=== PATIENT | female | born 1980 | race Caucasian/White ===

== ENCOUNTER 2017-01-09 15:25 | Emergency (ER) | payer MEDICAID ==
[~2017-01-09] VITALS: Ht 167.6 cm; Wt 56.0 kg
[~2017-01-09 15:25] MED LIST: BACT800T5 PO; CEPH500C3 PO; HYDR-3533 PO
[2017-01-09 15:27] VITALS: BP 127/78; PULSE 84; RESP 24; TEMP 99.9; O2SAT 96
[2017-01-09] MEDS ORDERED: PENI500T PO (16:20)
[2017-01-09] MEDS ORDERED: NORC5TAB PO (16:20)
--- NOTE | 2017-01-09 16:20 | PD ---
HPI Chief Complaint: Oral / Dental Pain or Problem Time Seen by Provider: 16:17 Travel History International Travel<30 days: No Contact w/Intl Traveler<30days: No Traveled to known affect area: No History of Present Illness HPI 36-year-old female here with complaint of dental pain. Patient states that she woke up this morning with pain in her left maxillary incisor. Noted associated lip swelling. Patient's pain is moderate to severe, associated swelling. She tried Tylenol and ibuprofen without improvement of her symptoms. She does not have a local dentist. PFSH Past Medical History Cancer: No Cardiovascular Problems: No Diabetes: No Endocrine: No Genitourinary: Yes (LEFT KIDNEY ) Hepatitis: No Hiatal Hernia: No Immune Disorder: No Kidney Stones: Yes Musculoskeletal: No Neurologic: No Psychiatric: No Reproductive: No Respiratory: No Thyroid Disease: No Tetanus Vaccination: < 5 Years PNEUMOCCOCAL Vaccine (Year): 2 ?: Not LMP: 11/2016 : 1 Para: 1 Past Surgical History Abdominal Surgery: No Body Medical Devices: NONE Cardiac Surgery: No Ear Surgery: No Endocrine Surgery: No Eye Surgery: No Genitourinary Surgery: Yes (left kidney cyst removal/LEFT KIDNEY STENT & REMV'D ' KIDNEY STONE REMOVAL ) Gynecologic Surgery: No Oral Surgery: No Thoracic Surgery: No Other Surgery: Yes Social History Alcohol Use: Yes (SOCIALLY) Tobacco Use: No Substance Use: No Allergies-Medications (Allergen,Severity, Reaction): Coded Allergies: No Known Allergies (Verified , 01/09/17) Reported Meds & Prescriptions Reported Meds & Active Scripts Active Bridgeton (Hydrocodone-Acetaminophen) 5-325 mg Tab 1-2 Tab PO Q6H PRN Penicillin V Potassium 500 Mg Tab 500 Mg PO Q6H 7 Days Review of Systems Except as stated in HPI: all other systems reviewed are Neg Physical Exam Narrative GENERAL: female in moderate distress SKIN: Focused skin assessment warm/dry. HEAD: Normocephalic. EYES:No scleral icterus. No injection or drainage. ENT: The left maxillary medial incisor is carious, lack and and slightly necrotic. There is a palpable abscess along the superior mucosal surface with associated with swelling. There does not appear to be any palpable abscess within the lip itself. Patient has several other teeth that are carious. None of these are tender to palpation, nor the mucosal around them. The floor the mouth is soft. No nasal bleeding or discharge. Mucous membranes pink and moist. NECK: Upper without lymphadenopathy CARDIOVASCULAR: Regular rate and rhythm. RESPIRATORY: No accessory muscle use. MUSCULOSKELETAL: Normal gait NEUROLOGICAL: Awake and alert. Normal speech. PSYCHIATRIC: Appropriate mood and affect; insight and judgment normal. Data Data Last Documented VS Vital Signs Date Time Temp Pulse Resp B/P Pulse Ox O2 Delivery O2 Flow Rate FiO2 01/09/17 15:27 99.9 84 24 127/78 96 Room Air Orders Lidocai-Epi 1%-1:100,000 Inj (Xylocaine- (01/09/17 16:30) MDM Medical Decision Making Medical Screen Exam Complete: Yes Emergency Medical Condition: Yes Medical Record Reviewed: Yes Differential Diagnosis 6-year-old female here with dental pain. Exam is consistent with dental caries with associated abscess. No evidence of Lanre angina. Narrative Course Abscess was incised and drained, please see procedure note. Will discharge to home with penicillin, Bridgeton and outpatient dental follow-up. Procedures Procedure Narrative INCISION AND DRAINAGE OF ABSCESS: The area was prepped and was sterilely draped. A subcutaneous wheal of 1% Xylocaine with epinephrine with a total number 5 mL was used to anesthetize the area. The area was properly anesthetized. A number 11 blade scalpel was used to make a 0.5-cm incision across the area of the abscess. Diagnosis Primary Impression: Dental abscess Additional Impression: Dental caries Referrals: Dentist 1 day Additional Instructions: Antibiotics as prescribed. Pain medications as needed. Follow-up with dentist as discussed. Med/Other Pt SpecificInfo: Prescription(s) given Scripts Hydrocodone-Acetaminophen (Bridgeton)5-325 mg Tab1-2 Tab PO Q6H PRN (PAIN) #15 TAB Ref 0 Prov:Isabel Matthew MD 01/09/17 Penicillin V Potassium 500 Mg [id number] Mg PO Q6H 7 Days Ref 0 Prov:Isabel Matthew MD 01/09/17 Disposition: 01 DISCHARGE HOME Condition: Stable Isabel Matthew MD Jan 09, 2017 16:20
[2017-01-09] MEDS ORDERED: LIDOCAINE 1%/EPINEPHrine 1:100,000 SOLN 20 ML VIAL INFIL ONE (16:30)
== END 2017-01-09 16:53 | disposition home or self-care (01) ==
LOC: NEPD 15:25
DX: K04.7 Periapical abscess without sinus (principal); K02.9 Dental caries, unspecified
CPT/HCPCS: 41800

== ENCOUNTER 2017-12-05 10:30 | Emergency (ER) | payer MEDICAID, OTHER ==
[~2017-12-05] VITALS: Ht 167.6 cm; Wt 56.0 kg
[~2017-12-05 10:30] MED LIST changes: -BACT800T5 PO; -CEPH500C3 PO; -HYDR-3533 PO; +NORC5TAB PO; +PENI500T PO
[2017-12-05 10:31] VITALS: BP 151/69; PULSE 104; RESP 22; TEMP 98.5; O2SAT 94
[2017-12-05 10:41] VITALS: BP 121/60; PULSE 81; RESP 22; TEMP 98.4; O2SAT 100
--- NOTE | 2017-12-05 13:27 | PD ---
HPI Chief Complaint: Headache Time Seen by Provider: 12:54 Travel History International Travel<30 days: No Contact w/Intl Traveler<30days: No Traveled to known affect area: No History of Present Illness HPI 37-year-old female presents the ED for evaluation of 1 week history of cold and flu symptoms. Patient endorses sinus congestion, green rhinorrhea, nonproductive cough, sore throat, sore neck, body aches, chills, cold sweats. She endorses mild nausea and one episode of nonbloody, nonbilious vomiting a few days ago. She denies chest pain, palpitations, shortness of breath, abdominal pain, dysuria, risk of . She has not measured a fever at home. She did not receive this years flu vaccine. She denies sick contacts. No treatment attempted at home. PFSH Past Medical History Cancer: No Cardiovascular Problems: No Diabetes: No Endocrine: No Genitourinary: Yes (LEFT KIDNEY ) Hepatitis: No Hiatal Hernia: No Immune Disorder: No Kidney Stones: Yes Musculoskeletal: No Neurologic: No Psychiatric: No Reproductive: No Respiratory: No Thyroid Disease: No Influenza Vaccination: No PNEUMOCCOCAL Vaccine (Year): 2 ?: Not : 1 Para: 1 Past Surgical History Abdominal Surgery: No Body Medical Devices: NONE Cardiac Surgery: No Ear Surgery: No Endocrine Surgery: No Eye Surgery: No Genitourinary Surgery: Yes (left kidney cyst removal/LEFT KIDNEY STENT & REMV'D ' KIDNEY STONE REMOVAL ) Gynecologic Surgery: No Oral Surgery: No Thoracic Surgery: No Other Surgery: Yes Social History Alcohol Use: Yes (SOCIALLY) Tobacco Use: No Substance Use: No Allergies-Medications (Allergen,Severity, Reaction): Coded Allergies: No Known Allergies (Verified Adverse Reaction, Unknown, 12/05/17) Reported Meds & Prescriptions Reported Meds & Active Scripts Active Ibuprofen 600 Mg Tab 600 Mg PO Q8HR PRN Augmentin (Amoxicillin-Clavulanate) 875-125 Mg Tab 1 Tab PO BID 7 Days Review of Systems Except as stated in HPI: all other systems reviewed are Neg Physical Exam Narrative GENERAL: Well-nourished, well-developed nontoxic-appearing female in no acute distress. SKIN: Warm and dry. HEAD: Normocephalic. Atraumatic. Tenderness to palpation of the facial sinuses. EYES: No scleral icterus. No injection or drainage. PERRLA. EOMI. ENT: Pearly garcia tympanic membranes bilaterally. Nasal mucosa is moist. Oropharynx without erythema, edema or exudate. Uvula midline. Airway patent. NECK: Supple, trachea midline. No JVD. Tender preauricular and submandibular lymphadenopathy. DENTAL: No loose or chipped teeth. No malocclusion. No evidence of infection or abscess. CARDIOVASCULAR: Regular rate and rhythm without murmurs, gallops, or rubs. No carotid bruits. 2+ DP and radial pulses bilaterally. RESPIRATORY: Breath sounds clear and equal bilaterally. No accessory muscle use. GASTROINTESTINAL: Abdomen soft, non-tender, nondistended. + Bowel sounds MUSCULOSKELETAL: No cyanosis, or edema. Full, active range of motion. Strength 5/5. Neurovascularly intact. BACK: Nontender without obvious deformity. No CVA tenderness. Data Data Last Documented VS Vital Signs Date Time Temp Pulse Resp B/P (MAP) Pulse Ox O2 Delivery O2 Flow Rate FiO2 12/05/17 15:13 16 12/05/17 10:41 98.4 81 121/60 (80) 100 Orders Orders Influenzae A/B Antigen (12/05/17 13:24) Complete Blood Count With Diff (12/05/17 13:24) Basic Metabolic Panel (Bmp) (12/05/17 13:24) ^ Insert Iv (12/05/17 13:24) Ondansetron Odt (Zofran Odt) (12/05/17 13:30) Sodium Chlor 0.9% 1000 Ml Inj (Ns 1000 M (12/05/17 13:30) Ketorolac Inj (Toradol Inj) (12/05/17 13:30) Ed Urine Pregnancytest Poc (12/05/17 13:27) Ed Discharge Order (12/05/17 14:40) Labs Laboratory Tests Test 12/05/17 13:35 White Blood Count 14.8 TH/MM3 Red Blood Count 4.57 MIL/MM3 Hemoglobin 13.7 GM/DL Hematocrit 41.1 % Mean Corpuscular Volume 89.9 FL Mean Corpuscular Hemoglobin 30.0 PG Mean Corpuscular Hemoglobin Concent 33.4 % Red Cell Distribution Width 12.7 % Platelet Count 343 TH/MM3 Mean Platelet Volume 8.8 FL Neutrophils (%) (Auto) 77.1 % Lymphocytes (%) (Auto) 15.6 % Monocytes (%) (Auto) 6.6 % Eosinophils (%) (Auto) 0.4 % Basophils (%) (Auto) 0.3 % Neutrophils # (Auto) 11.4 TH/MM3 Lymphocytes # (Auto) 2.3 TH/MM3 Monocytes # (Auto) 1.0 TH/MM3 Eosinophils # (Auto) 0.1 TH/MM3 Basophils # (Auto) 0.0 TH/MM3 CBC Comment DIFF FINAL Differential Comment Blood Urea Nitrogen 15 MG/DL Creatinine 0.90 MG/DL Random Glucose 85 MG/DL Calcium Level 9.5 MG/DL Sodium Level 138 MEQ/L Potassium Level 3.8 MEQ/L Chloride Level 103 MEQ/L Carbon Dioxide Level 26.9 MEQ/L Anion Gap 8 MEQ/L Estimat Glomerular Filtration Rate 71 ML/MIN MDM Medical Decision Making Medical Screen Exam Complete: Yes Emergency Medical Condition: Yes Differential Diagnosis Sinusitis versus influenza versus viral syndrome versus other Narrative Course 37-year-old female presents the ED for evaluation of 1 week history of cold and flu symptoms. Patient endorses sinus congestion, green rhinorrhea, nonproductive cough, sore throat, sore neck, body aches, chills, cold sweats. She endorses mild nausea and one episode of nonbloody, nonbilious vomiting a few days ago. Patient's afebrile on presentation. Vitals stable. On exam she has tenderness to palpation of the facial sinuses and some preauricular and submandibular LAD. Exam is otherwise reassuring. IV was established. Patient was administered 1 L normal saline, 15 mg Toradol, 4 mg Zofran ODT. Flu swab negative. Bedside urine test negative. CBC with mild leukocytosis. BMP unremarkable On recheck patient reports some improvement of symptoms. I suspect this is sinusitis. Patient's prescribed Augmentin 500 mg twice daily 7 days. She is provided with a few doses of 60 mg ibuprofen. She is instructed to rest, hydrate, take antibiotics as prescribed, ibuprofen as needed, follow-up with the ENT, return for worsening symptoms. She indicated understanding the instructions. She is agreeable with the care plan. The patient is stable and discharged home. Diagnosis Primary Impression: Sinusitis Qualified Codes: J01.90 - Acute sinusitis, unspecified Referrals: Ear / Nose / Throat Specialist Additional Instructions: Rest, hydrate. Begin antibiotics today and take them as prescribed until every dose is gone. Ibuprofen every 8 hours as needed for body aches and pains, fever. Follow-up with the director of search engine marketing. Return to the ED for worsening symptoms or any urgent or emergent medical condition. Med/Other Pt SpecificInfo: Prescription(s) given Scripts Ibuprofen (Ibuprofen) 600 Mg Tab 600 MG PO Q8HR Y for PAIN, #12 TAB 0 Refills Prov: Romana Mendes DO 12/05/17 Amoxicillin-Clavulanate (Augmentin) 875-125 Mg Tab 1 TAB PO BID for Infection for 7 Days, #14 TAB 0 Refills Prov: Romana Mendes DO 12/05/17 Disposition: 01 DISCHARGE HOME Condition: Stable Tina Mobley Dec 05, 2017 13:27
[2017-12-05] MEDS ORDERED: SODIUM CHLOR 0.9% 1000 ML INJ 1,000 ML IV ONE (13:30)
[2017-12-05] MEDS ORDERED: KETOROLAC TROMETHAMINE 30 MG/ML (IVP) VIAL IV PUSH ONE (13:30)
[2017-12-05] MEDS ORDERED: ONDANSETRON ODT 4 MG TAB PO ONE (13:30)
[2017-12-05 13:49] LABS: AUTOMATED NEUTROPHIL # 11.4 TH/MM3 (1.8-7.7); BASOPHIL % 0.3 % (0.0-2.0); EOSINOPHIL # 0.1 TH/MM3 (0-0.4); EOSINOPHIL % 0.4 % (0.0-4.0); HEMATOCRIT 41.1 % (35.0-46.0); HEMOGLOBIN 13.7 GM/DL (11.6-15.3); LYMPH % 15.6 % (9.0-44.0); LYMPHOCYTE # 2.3 TH/MM3 (1.0-4.8); MEAN CELL VOLUME 89.9 FL (80.0-100.0); MEAN CORPUSCULAR HGB CONC 33.4 % (32.0-36.0); MEAN PLATELET VOLUME 8.8 FL (7.0-11.0); MONO % 6.6 % (0.0-8.0); NEUT % 77.1 % (16.0-70.0); PLATELET COUNT 343 TH/MM3 (150-450); RED BLOOD COUNT 4.57 MIL/MM3 (4.00-5.30); RED CELL DISTRIBUTION WIDTH 12.7 % (11.6-17.2); WHITE BLOOD COUNT 14.8 TH/MM3 (4.0-11.0)
[2017-12-05 14:15] LABS: BICARBONATE 26.9 MEQ/L (21.0-32.0); CALCIUM 9.5 MG/DL (8.5-10.1); CREATININE 0.9 MG/DL (0.50-1.00)
[2017-12-05] MEDS ORDERED: IBUP-232 PO (14:35)
[2017-12-05] MEDS ORDERED: AUGM875T3 PO (14:35)
--- NOTE | 2017-12-05 14:47 | PD ---
Data Data Last Documented VS Vital Signs Date Time Temp Pulse Resp B/P (MAP) Pulse Ox O2 Delivery O2 Flow Rate FiO2 12/05/17 10:41 98.4 81 22 121/60 (80) 100 Orders Orders Influenzae A/B Antigen (12/05/17 13:24) Complete Blood Count With Diff (12/05/17 13:24) Basic Metabolic Panel (Bmp) (12/05/17 13:24) ^ Insert Iv (12/05/17 13:24) Ondansetron Odt (Zofran Odt) (12/05/17 13:30) Sodium Chlor 0.9% 1000 Ml Inj (Ns 1000 M (12/05/17 13:30) Ketorolac Inj (Toradol Inj) (12/05/17 13:30) Ed Urine Pregnancytest Poc (12/05/17 13:27) Ed Discharge Order (12/05/17 14:40) Labs Laboratory Tests Test 12/05/17 13:35 White Blood Count 14.8 TH/MM3 Red Blood Count 4.57 MIL/MM3 Hemoglobin 13.7 GM/DL Hematocrit 41.1 % Mean Corpuscular Volume 89.9 FL Mean Corpuscular Hemoglobin 30.0 PG Mean Corpuscular Hemoglobin Concent 33.4 % Red Cell Distribution Width 12.7 % Platelet Count 343 TH/MM3 Mean Platelet Volume 8.8 FL Neutrophils (%) (Auto) 77.1 % Lymphocytes (%) (Auto) 15.6 % Monocytes (%) (Auto) 6.6 % Eosinophils (%) (Auto) 0.4 % Basophils (%) (Auto) 0.3 % Neutrophils # (Auto) 11.4 TH/MM3 Lymphocytes # (Auto) 2.3 TH/MM3 Monocytes # (Auto) 1.0 TH/MM3 Eosinophils # (Auto) 0.1 TH/MM3 Basophils # (Auto) 0.0 TH/MM3 CBC Comment DIFF FINAL Differential Comment Blood Urea Nitrogen 15 MG/DL Creatinine 0.90 MG/DL Random Glucose 85 MG/DL Calcium Level 9.5 MG/DL Sodium Level 138 MEQ/L Potassium Level 3.8 MEQ/L Chloride Level 103 MEQ/L Carbon Dioxide Level 26.9 MEQ/L Anion Gap 8 MEQ/L Estimat Glomerular Filtration Rate 71 ML/MIN [facility] Medical Record Reviewed: Yes Supervised Visit with CAMILLE: Yes Narrative Course I, Dr. Mendes, have reviewed the advance practice practitioner's documentation and am in agreement, met with the patient face to face, made the diagnosis, and the medical decision making was done by me. *My assessment and Findings: Sinusitis: Patient is a 37-year-old female presents the emergency room with complaints of 1 week of cough, nasal congestion, increased sinus congestion, sore throat, body aches and chills. Patient reports that nothing has made symptoms better or worse, denies any fevers at home. Patient was found to have sinusitis on clinical exam, plan to start her on Augmentin. VSS. Signs and symptoms of when to return to the emergency room was reviewed with the patient in detail. Diagnosis Primary Impression: Sinusitis Qualified Codes: J01.90 - Acute sinusitis, unspecified Referrals: Ear / Nose / Throat Specialist Patient Instructions: General Instructions, Sinusitis (ED) Departure Forms: Tests/Procedures Additional Instruction: Rest, hydrate. Begin antibiotics today and take them as prescribed until every dose is gone. Ibuprofen every 8 hours as needed for body aches and pains, fever. Follow-up with the learning developer. Return to the ED for worsening symptoms or any urgent or emergent medical condition. Scripts Ibuprofen (Ibuprofen) 600 Mg Tab 600 MG PO Q8HR Y for PAIN, #12 TAB 0 Refills Prov: Romana Mendes DO 12/05/17 Amoxicillin-Clavulanate (Augmentin) 875-125 Mg Tab 1 TAB PO BID for Infection for 7 Days, #14 TAB 0 Refills Prov: Romana Mendes DO 12/05/17 Disposition: 01 DISCHARGE HOME Condition: Stable Romana Mendes DO Dec 05, 2017 14:47
[2017-12-05 15:13] VITALS: RESP 16
== END 2017-12-05 15:14 | disposition home or self-care (01) ==
LOC: NEPD 10:30
DX: J01.90 Acute sinusitis, unspecified (principal)
CPT/HCPCS: 80048; 84703; 85025; 87804; 96361; 96374; 99283; J1885; J7030